=== PATIENT | male | born 1965 ===

== ENCOUNTER 2023-06-29 15:37 | Outpatient (CLI) | payer OTHER, SELFPAY ==
[2023-06-29 22:55] LABS: PSA, Screening 0.8 ng/mL (<=3.5)
== END 2023-06-29 15:38 | disposition home or self-care (01) ==
PROVIDERS: Visit Provider Nurse Practitioner Gerontology
DX: R97.20 Elevated prostate specific antigen [PSA] (principal); Z80.42 Family history of malignant neoplasm of prostate
CPT/HCPCS: 36415; 84153

== ENCOUNTER 2023-07-28 18:47 | Outpatient (CLI) | payer OTHER, SELFPAY ==
[2023-07-28 11:25] LABS: Estimated GFR 87.78 (mL/min/1.73m2)
== END 2023-07-28 18:48 | disposition home or self-care (01) ==
LOC: LBO 18:49
PROVIDERS: PCP Family Medicine; Visit Provider Surgery
DX: G89.18 Other acute postprocedural pain (principal); R10.30 Lower abdominal pain, unspecified
CPT/HCPCS: 36415; 82565

== ENCOUNTER → 2023-08-16 02:09 | Outpatient (CLI) | payer OTHER, SELFPAY ==
--- NOTE | 2023-08-16 07:15 | DI.MRI_ITS ---
Exam(s) MR PELVIS WO/W EXAM: MR PELVIS WO/W CLINICAL HISTORY: pain after inguinal hernia repair,post op,acute groin pain,R10.30 COMPARISON: US US SCROTUM AND CONTENTS from 11/10/2022 FINDINGS: Bones: There is no fracture or contusion pattern. No significant joint effusion or labral injury is present. No bone marrow edema is seen. The SI joints and symphysis pubis are well maintained. Musculotendinous structures: Musculotendinous structures demonstrate no abnormality. Intrapelvic contents: Diverticulosis. No bowel dilatation. Urinary bladder nearly empty. No ascite s. Reproductive: Prostate normal in size. Bilateral hydroceles. Soft tissues: No abnormal signal within the inguinal canals. Small amount of fat is seen on the left . Minimal scarring in the fat of the right inguinal canal related to surgery without abnormal signal . No abnormal enhancement. IMPRESSION: Status post right inguinal hernia repair. No evidence of a hernia. No fluid collection or abnormal enhancement. Small fatty containing left inguinal hernia. Bilateral hydroceles. DATA REPOSITORY:
[2023-08-16] MEDS: Normal Saline Flush 10 ML SYR IVP (10:21)
[2023-08-16] MEDS: Gadoterate meglumine 20 ML SYRINGE 16 ML IVP (10:22)
== END ==
PROVIDERS: PCP Family Medicine; Visit Provider Surgery
DX: G89.18 Other acute postprocedural pain (principal); R10.30 Lower abdominal pain, unspecified; N43.3 Hydrocele, unspecified
CPT/HCPCS: 72197